=== PATIENT | female | born 1955 | race Asian ===

== ENCOUNTER 2019-05-09 05:43 | Day surgery (SDC) | payer OTHER ==
[~2019-05-09] VITALS: Ht 149.9 cm; Wt 61.2 kg
[2019-05-09] MEDS ORDERED: CEFAZOLIN SOD 1 GM in D5W 50 ML IV ONE (07:00)
[2019-05-09] MEDS ORDERED: IOHEXOL 50 ML IV ONE (07:37)
[2019-05-09] MEDS ORDERED: SEVOFLURANE 15 MIN GAS INH ONE (07:40)
[2019-05-09] MEDS ORDERED: SUGAMMADEX SODIUM 200 MG/2 ML VIAL IV ONE (07:40)
[2019-05-09] MEDS ORDERED: LR 1,000 ML IV.SOLN IV ONE (07:40)
[2019-05-09] MEDS ORDERED: BUPIVACAINE /EPINEPHRINE/PF 0.25% 30 ML VIAL INJ ONE (07:40)
[2019-05-09] MEDS ORDERED: fentaNYL CITRATE 250 MCG/5 ML AMP ONE (07:40)
[2019-05-09] MEDS ORDERED: PROPOFOL 200MG/ 20ML VIAL (DIPRIVAN) IV ONE (07:40)
[2019-05-09] MEDS ORDERED: ROCURONIUM BROMIDE 10 MG/ML (ZEMURON) ONE (07:40)
[2019-05-09] MEDS ORDERED: ONDANSETRON HCL 4 MG/2 ML VIAL ONE (07:40)
[2019-05-09] MEDS ORDERED: NS 1000 ML IV.SOLN IV ONE (07:40)
[2019-05-09] MEDS ORDERED: MIDAZOLAM HCL 5 MG/ML VIAL (VERSED) IV ONE (07:40)
[2019-05-09] MEDS ORDERED: MORPHINE SULFATE 10MG/10ML PF AMP EP ONE (07:40)
[2019-05-09] MEDS ORDERED: LR 1,000 ML IV SCH (08:36)
[2019-05-09] MEDS ORDERED: METOCLOPRAMIDE HCL 10 MG/2 ML VIAL IVP PRN (08:45)
[2019-05-09] MEDS ORDERED: MORPHINE 4 MG/ML INJ. SYRINGE IVP PRN ×3 (08:45)
[2019-05-09] MEDS ORDERED: D5/0.45 NS 1,000 ML IV SCH (08:50)
[2019-05-09] MEDS ORDERED: HYDROcodone/ACETAMIN 5-325 MG TAB (NORCO/ VICODIN) PO PRN ×2 (09:00)
[2019-05-09] MEDS ORDERED: HYDROmorphone 1 MG INJ. 1 MG/ML AMPUL IVP PRN (09:00)
[2019-05-09] MEDS ORDERED: MORPHINE 4 MG/ML INJ. SYRINGE ONE (09:41)
[2019-05-09 10:47] VITALS: BP_SYST 124
== END 2019-05-09 11:30 | disposition home or self-care (01) ==
LOC: SDS 05:43 → SMU 05:44 → SDS 11:30
PROVIDERS: ATTEND Colon & Rectal Surgery
DX: K80.10 Calculus of gallbladder with chronic cholecystitis without obstruction (principal); K66.0 Peritoneal adhesions (postprocedural) (postinfection); Z90.49 Acquired absence of other specified parts of digestive tract; Z98.890 Other specified postprocedural states; F17.200 Nicotine dependence, unspecified, uncomplicated; Z80.0 Family history of malignant neoplasm of digestive organs; K21.9 Gastro-esophageal reflux disease without esophagitis; M19.90 Unspecified osteoarthritis, unspecified site; G62.9 Polyneuropathy, unspecified
CPT/HCPCS: 47563; 74300; 88304; C1727; C1758; C9399; J0690; J2250; J2270; J2274; J2405; J2704; J3010; J3490; J7030; J7060; J7120; Q9967

== ENCOUNTER 2023-06-30 09:13 | Emergency (ER) | payer OTHER ==
[~2023-06-30] VITALS: Ht 149.9 cm; Wt 63.5 kg
[2023-06-30 09:20] VITALS: BP_SYST 168; PULSE 96; RESP 15; TEMP 98.2; O2SAT 98
[2023-06-30] MEDS ORDERED: ALEN70TA84 PO (09:31)
[2023-06-30] MEDS ORDERED: LATA2.5D14 TP (09:31)
[2023-06-30] MEDS ORDERED: NAPR-690 PO (09:31)
[2023-06-30] MEDS ORDERED: ROSU20TA73 PO (09:31)
[2023-06-30] MEDS ORDERED: KETOROLAC TROMETHAMINE 30 MG VIAL IM ONE (09:45)
[2023-06-30] MEDS ORDERED: MAG HYDROX/AL HYDROX/SIMETH 30 ML, DICYCLOMINE HCL 20 MG, LIDOCAINE VISCOUS 2% 15ML (PO... PO ONE ×3 (09:45)
[2023-06-30 10:16] LABS: BASOPHILS % (AUTO) 0.4 % (0.0-2.0); EOSINOPHILS # (AUTO) 0.2 K/uL (0.0-0.4); EOSINOPHILS % (AUTO) 1.6 % (0.0-4.0); HEMATOCRIT 46.3 % (36-48); HEMOGLOBIN 15.3 g/dL (12.0-16.0); LYMPHOCYTES # (AUTO) 2.6 K/uL (1.0-5.5); LYMPHOCYTES % (AUTO) 25.5 % (20.5-51.5); MEAN CORPUSCULAR HEMOGLOBIN 31 pg (27-31); MEAN CORPUSCULAR HGB CONC 33 % (32-36); MEAN CORPUSCULAR VOLUME 93 fL (79.0-98.0); MONOCYTES % (AUTO) 9.2 % (1.7-9.3); NEUTROPHILS # (AUTO) 6.5 K/uL (1.8-7.7); NEUTROPHILS % (AUTO) 63.3 % (40.0-70.0); PLATELET COUNT (AUTO) 175 K/uL (130-430); RED BLOOD CELL COUNT(AUTO) 4.97 MIL/uL (4.2-6.2); RED CELL DISTRIBUTION WIDTH 13.9 % (9.0-15.0); WHITE BLOOD COUNT (AUTO) 10.3 K/uL (4.8-10.8)
[2023-06-30 10:40] LABS: CALCIUM 9.1 mg/dL (8.4-11.0); CREATININE 0.79 mg/dL (0.55-1.30); POTASSIUM 3.4 mmol/L (3.5-5.1)
[2023-06-30 10:44] LABS: ALBUMIN 3.2 g/dL (3.4-4.8); TOTAL BILIRUBIN 0.7 mg/dL (0.0-1.0); TOTAL PROTEIN, SERUM 7.1 g/dL (6.4-8.3)
[2023-06-30] MEDS ORDERED: TRAM50TA2 PO (10:54)
[2023-06-30] MEDS ORDERED: AUG875 PO (10:54)
[2023-06-30 11:02] VITALS: BP_SYST 134; PULSE 70; RESP 18; TEMP 98; O2SAT 94
== END 2023-06-30 11:02 | disposition home or self-care (01) ==
LOC: SED 09:13
DX: K57.92 Diverticulitis of intestine, part unspecified, without perforation or abscess without bleeding (principal); R10.13 Epigastric pain; R19.7 Diarrhea, unspecified; Z79.899 Other long term (current) drug therapy
CPT/HCPCS: 99285; 74176; 80053; 83690; 85025; 36415; 76376; 96372; J2001; J1885